=== PATIENT | male | born 1965 | race Two or more races ===

== ENCOUNTER 2017-05-12 07:47 | Emergency (ER) | payer SELFPAY ==
[~2017-05-12] VITALS: Ht 177.8 cm; Wt 85.0 kg
[2017-05-12 08:04] VITALS: BP 156/86
== END 2017-05-12 10:31 | disposition left against medical advice (07) ==
LOC: ER 07:47
DX: Z53.21 Procedure and treatment not carried out due to patient leaving prior to being seen by health care provider (principal)